=== PATIENT | female | born 1985 | race Caucasian/White ===

== ENCOUNTER 2022-07-30 21:20 | Inpatient (IN) | payer OTHER ==
[2022-07-30] MEDS ORDERED: BISACODYL 10 MG SUPP.RECT RC PRN (21:55)
[2022-07-30] MEDS ORDERED: BENZOCAINE 20% 57 GM BOTTLE TP PRN (21:55)
[2022-07-30] MEDS ORDERED: WITCH HAZEL 50% (TUCKS) 40 PAD/JAR PAD TP PRN (21:55)
[2022-07-30] MEDS ORDERED: ACETAMINOPHEN 325 MG TABLET (FP) PO PRN (21:55)
[2022-07-30] MEDS ORDERED: BENZOCAINE 28 GM HEMORRHOIDAL OINTMENT TP PRN (21:55)
[2022-07-30] MEDS ORDERED: OXYTOCIN 20 UNITS in 0.9% NS 20 UNIT/1,000 ML INFUS.BAG IV SCH (22:00)
[2022-07-30] MEDS ORDERED: ELECTROLYTE-148 SOLN 1,000 ML IV SCH (22:00)
[2022-07-30] MEDS ORDERED: IBUPROFEN 600 MG TABLET (FP) PO ONE (22:26)
[2022-07-30] MEDS: IBUPROFEN 600 MG TABLET (FP) PO PRN (22:30)
[2022-07-30 22:35] VITALS: BMI 35.9
[2022-07-30 22:35] LABS: BASO % 0.2 % (0-2.0); EOS % 1.6 % (0-4.5); HEMATOCRIT 33.7 % (32.4-45.2); LYMPH % 20.5 % (8-40); MCH 26.9 pg (25.7-33.7); MCHC 32.6 g/dl (32.0-36.0); MEAN CELL VOLUME 82.6 fl (80-96); MEAN PLT VOLUME 9.7 fl (7.5-11.1); MONO % 6.9 % (3.8-10.2); NEUT % 70.8 % (42.8-82.8); PLATELET COUNT 276 10^3/uL (134-434); RBC 4.08 M/mm3 (3.60-5.2); RDW 17.6 % (11.6-15.6)
[2022-07-30 22:44] LABS: PROTHROMBIN TIME (PATIENT) 11.6 SEC (9.7-13.0)
[2022-07-30 22:47] LABS: ACTIVATED PTT 27.9 SECONDS (25.2-36.5)
[2022-07-30 22:54] LABS: CALCIUM 9.3 mg/dL (8.5-10.1)
[2022-07-30 22:55] LABS: BLOOD UREA NITROGEN 3.1 mg/dL (7-18)
[2022-07-30 22:58] LABS: CREATININE 0.6 mg/dL (0.55-1.3)
[2022-07-31 07:10] LABS: BASO % 0.1 % (0-2.0); EOS % 0.4 % (0-4.5); HEMATOCRIT 30.3 % (32.4-45.2); HEMOGLOBIN 10.1 GM/dL (10.7-15.3); LYMPH % 12.8 % (8-40); MCH 27.6 pg (25.7-33.7); MCHC 33.4 g/dl (32.0-36.0); MEAN CELL VOLUME 82.8 fl (80-96); MEAN PLT VOLUME 10.1 fl (7.5-11.1); MONO % 6.5 % (3.8-10.2); NEUT % 80.2 % (42.8-82.8); PLATELET COUNT 237 10^3/uL (134-434); RBC 3.66 M/mm3 (3.60-5.2); RDW 17.4 % (11.6-15.6); WHITE BLOOD COUNT 16.1 K/mm3 (4.0-10.0)
[2022-07-31] MEDS: IBUPROFEN 600 MG TABLET (FP) PO PRN ×2 (13:50→21:00)
[2022-07-31 14:09] LABS: POC NITRAZINE POS
[2022-07-31] MEDS: LORATADINE 10 MG TABLET PO SCH (14:59)
[2022-07-31] MEDS ORDERED: SENNOSIDES/DOCUSATE COMBO (SENNA PLUS) TABLET (UD) PO PRN (22:00)
[2022-08-01] MEDS: IBUPROFEN 600 MG TABLET (FP) PO PRN (06:23)
[2022-08-01] MEDS: LORATADINE 10 MG TABLET PO SCH (10:57)
[2022-08-01 11:02] VITALS: BP 115/75; PULSE 75; RESP 18; TEMP 97.9
== END 2022-08-01 14:10 | disposition home or self-care (01) | DRG 560 ==
LOC: EDSEX 21:20 → JLDR 21:20 → J3W 23:36
PROVIDERS: ADMIT Student in an Organized Health Care Education/Training Program; ATTEND Student in an Organized Health Care Education/Training Program
PROC: 10E0XZZ Delivery of Products of Conception, External Approach (ICD-10-PCS; principal; 2022-07-30)
DX: O62.3 Precipitate labor (principal); O70.0 First degree perineal laceration during delivery; Z3A.38 38 weeks gestation of pregnancy; Z37.0 Single live birth
CPT/HCPCS: 36415; 80048; 83986-QW; 85025; 85610; 85730; 86780; 86850; 86900; 86901; C9803-CS; U0003; U0005